=== PATIENT | female | born 1990 | race Caucasian/White ===

== ENCOUNTER 2017-04-01 23:41 | Emergency (ER) | payer BC, OTHER ==
[~2017-04-01] VITALS: Ht 162.6 cm; Wt 68.7 kg
[2017-04-01 23:47] VITALS: TEMP 36.9; Ht 162.6 cm; Wt 68.7 kg
[2017-04-02] MEDS ORDERED: CLR10 PO (00:21)
[2017-04-02] MEDS ORDERED: MULT-506 PO (00:21)
[2017-04-02] MEDS ORDERED: PRENTAB26 PO (00:22)
[2017-04-02 00:44] LABS: BASO % 0.4 %; BASO ABS # 0.04 K/uL (0-0.2); EOS % 0.1 %; EOS ABS # 0.01 K/uL (0-0.5); HEMATOCRIT 40.6 % (37-47); HEMOGLOBIN 14.5 g/dL (12.0-16.0); IG# 0.02 K/uL (0.00-0.02); LYMPH % 20.9 %; LYMPH ABS # 2.38 K/uL (1.2-3.4); MEAN CORPUSCULAR HEMOGLOBIN 31.8 pg (25-34); MEAN CORPUSCULAR HGB CONC 35.7 g/dl (32-36); MEAN PLATELET VOLUME 11.1 fL (7.4-10.4); MONO % 7.4 %; MONO ABS # 0.84 K/uL (0.11-0.59); NEUT ABS # 8.09 K/uL (1.4-6.5); PLATELET COUNT 275 K/uL (130-400); RED CELL DISTRIBUTION WIDTH CV 11.8 % (11.5-14.5); RED CELL DISTRIBUTION WIDTH SD 38.2 fL (36.4-46.3); WHITE BLOOD COUNT 11.38 K/uL (4.8-10.8)
[2017-04-02 00:49] VITALS: O2SAT 95
[2017-04-02 01:13] LABS: ALBUMIN 4.1 gm/dl (3.4-5.0); ALKALINE PHOSPHATASE 53 U/L (45-117); ALT/SGPT 20 U/L (12-78); AST/SGOT 23 U/L (15-37); BLOOD UREA NITROGEN 13 mg/dl (7-18); CALCIUM 9.3 mg/dl (8.5-10.1); CARBON DIOXIDE 23 mmol/L (21-32); CKMB 1.1 ng/ml (0.5-3.6); GLUCOSE 114 mg/dl (70-99); POTASSIUM 3.4 mmol/L (3.5-5.1); SODIUM 140 mmol/L (136-145); TOTAL PROTEIN 8.1 gm/dl (6.4-8.2)
[2017-04-02] MEDS ORDERED: LORAZEPAM 0.5 MG TAB SL STA (02:25)
[2017-04-02] MEDS ORDERED: OPTIRAY 320 IV PRN (02:30)
--- NOTE | 2017-04-02 03:13 | EMERGENCY ROOM VISIT NOTE ---
History Report prepared by Uzielibmichelle: Sonny Bro Under the Supervision of: Dr. Satya Stahl D.O. First contact with patient: 00:19 Chief Complaint: ARM PAIN Stated Complaint: LEFT ARM DISCOMFORT/TINGLING History of Present Illness The patient is a 27 year old female who presents to the Emergency Room with complaints of left arm pain that started 3 days ago. She states she finished a total body core workout and that her left arm is swollen. She states her arm is numb and tingling. She denies chest pain and neck pain. Of note, the patient is nervous to be in the ED and is having difficulty relaxing. Source of History: patient Onset: 3 days ago Position: arm (left) Timing: constant Associated Symptoms: No neck pain, No chest pain Note: Patient reports numbness and tingling in her left arm. Review of Systems See HPI for pertinent positives & negatives. A total of 10 systems reviewed and were otherwise negative. Social History Smoking Status: Never Smoker Current/Historical Medications Scheduled Loratadine (Claritin), 10 MG PO DAILY Multivit/Min/Iron/Fol Ac/Pren ( Vitamin), 1 TAB PO DAILY Multivitamin (Multivitamin), 1 TAB PO DAILY Allergies Coded Allergies: Mushroom (Verified Allergy, Unknown, VOMITING, 04/02/17) Physical Exam Vital Signs Date Time Temp Pulse Resp B/P (MAP) Pulse Ox O2 Delivery O2 Flow Rate FiO2 04/02/17 02:49 109 18 138/82 99 Room Air 04/02/17 01:20 99 18 117/74 98 Room Air 04/02/17 00:49 95 Room Air 04/02/17 00:49 113 20 115/77 95 Room Air 04/02/17 00:10 132 04/02/17 00:08 120 20 136/86 99 Room Air 04/01/17 23:47 36.9 126 20 133/73 100 Room Air Physical Exam CONSTITUTIONAL/VITAL SIGNS: Reviewed / noted above. GENERAL: Non-toxic in appearance. INTEGUMENTARY: Warm, dry, and [place]. HEAD: Normocephalic. EYES: without scleral icterus or trauma. ENT/OROPHARYNX: clear and moist. LYMPHADENOPATHY/NECK: Is supple without lymphadenopathy or meningismus. RESPIRATORY: Lungs clear and equal. CARDIOVASCULAR: Tachycardiac and regular rhythm. GI/ABDOMEN: Soft and nontender. No organomegaly or pulsatile mass. No rebound or guarding. Normal bowel sounds. EXTREMITIES: Warm and well perfused. BACK: No CVA tenderness. NEUROLOGICAL: Intact without focal deficits. PSYCHIATRIC: normal affect. MUSCULOSKELETAL: Normally developed with good muscle tone. Medical Decision & Procedures ER Provider Diagnostic Interpretation: Chest x-ray:per my interpretation is negative for acute disease. No pneumothorax or pneumonia. CT scan of the chest: Per the radiologist as negative for acute disease. Laboratory Results 04/02/17 00:25 Red Blood Count 4.56, Mean Corpuscular Volume 89.0, Mean Corpuscular Hemoglobin 31.8, Mean Corpuscular Hemoglobin Concent 35.7, Mean Platelet Volume 11.1, Neutrophils (%) (Auto) 71.0, Lymphocytes (%) (Auto) 20.9, Monocytes (%) (Auto) 7.4, Eosinophils (%) (Auto) 0.1, Basophils (%) (Auto) 0.4, Neutrophils # (Auto) 8.09, Lymphocytes # (Auto) 2.38, Monocytes # (Auto) 0.84, Eosinophils # (Auto) 0.01, Basophils # (Auto) 0.04 04/02/17 00:25 Test 04/02/17 00:25 04/02/17 01:54 04/02/17 02:10 White Blood Count 11.38 K/uL (4.8-10.8) Red Blood Count 4.56 M/uL (4.2-5.4) Hemoglobin 14.5 g/dL (12.0-16.0) Hematocrit 40.6 % (37-47) Mean Corpuscular Volume 89.0 fL (80-100) Mean Corpuscular Hemoglobin 31.8 pg (25-34) Mean Corpuscular Hemoglobin Concent 35.7 g/dl (32-36) Platelet Count 275 K/uL (130-400) Mean Platelet Volume 11.1 fL (7.4-10.4) Neutrophils (%) (Auto) 71.0 % Lymphocytes (%) (Auto) 20.9 % Monocytes (%) (Auto) 7.4 % Eosinophils (%) (Auto) 0.1 % Basophils (%) (Auto) 0.4 % Neutrophils # (Auto) 8.09 K/uL (1.4-6.5) Lymphocytes # (Auto) 2.38 K/uL (1.2-3.4) Monocytes # (Auto) 0.84 K/uL (0.11-0.59) Eosinophils # (Auto) 0.01 K/uL (0-0.5) Basophils # (Auto) 0.04 K/uL (0-0.2) RDW Standard Deviation 38.2 fL (36.4-46.3) RDW Coefficient of Variation 11.8 % (11.5-14.5) Immature Granulocyte % (Auto) 0.2 % Immature Granulocyte # (Auto) 0.02 K/uL (0.00-0.02) Anion Gap 10.0 mmol/L (3-11) Est Creatinine Clear Calc Drug Dose 79.0 ml/min Estimated GFR () 88.2 Estimated GFR (Non- 76.1 BUN/Creatinine Ratio 12.5 (10-20) Calcium Level 9.3 mg/dl (8.5-10.1) Total Bilirubin 0.3 mg/dl (0.2-1) Direct Bilirubin mg/dl (0-0.2) Aspartate Amino Transf (AST/SGOT) 23 U/L (15-37) Alanine Aminotransferase (ALT/SGPT) 20 U/L (12-78) Alkaline Phosphatase 53 U/L (45-117) Total Creatine Kinase 161 U/L (26-192) Creatine Kinase MB 1.1 ng/ml (0.5-3.6) Creatine Kinase MB Ratio 0.7 (0-3.0) Troponin I < 0.015 ng/ml (0-0.045) Total Protein 8.1 gm/dl (6.4-8.2) Albumin 4.1 gm/dl (3.4-5.0) Thyroid Stimulating Hormone (TSH) 7.340 uIu/ml (0.300-4.500) Chemistry Specimen Hemolysis Bedside D-Dimer > 450 ng/mlFEU (0-450) Urine Color YELLOW Urine Appearance CLEAR (CLEAR) Urine pH 7.0 (4.5-7.5) Urine Specific [place] 1.010 (1.000-1.030) Urine Protein NEG (NEG) Urine Glucose (UA) NEG (NEG) Urine Ketones NEG (NEG) Urine Occult Blood 3+ (NEG) Urine Nitrite NEG (NEG) Urine Bilirubin NEG (NEG) Urine Urobilinogen NEG (NEG) Urine Leukocyte Esterase NEG (NEG) Urine WBC (Auto) 1-5 /hpf (0-5) Urine RBC (Auto) 0-4 /hpf (0-4) Urine Hyaline Casts (Auto) 0 /lpf (0-5) Urine Epithelial Cells (Auto) 10-20 /lpf (0-5) Urine Bacteria (Auto) NEG (NEG) Urine Yeast (Auto) (NONE PRSENT) Laboratory results as stated above per my review. Medications Administered Medications (Trade) Dose Ordered Sig/Teri Route Start Time Stop Time Status Last Admin Dose Admin Lorazepam (Ativan Tab) 0.5 mg NOW STAT SL 04/02/17 02:25 04/02/17 02:26 DC 04/02/17 02:47 0.5 MG ED Course 0019: Previous medical records were reviewed. The patient was evaluated in room B11B. A complete history and physical examination was performed. 0220: I checked in with the patient and discussed her lab findings. 0225: Ativan Tab .5 mg SL. 0345: On reevaluation, the patient is doing well. I discussed the results and findings with the patient. She verbalized agreement of the treatment plan. The patient was discharged home. Medical Decision the differential was considered includes acute myocardial infarction, acute coronary syndrome, myocarditis, pericarditis, pericardial effusions /tamponade, esophageal perforation, thoracic aortic dissection, pulmonary embolism, pneumonia, pneumothorax, pancreatitis, shingles, acute cholecystitis, perforated abdominal viscus. This is a 27-year-old female who presents to the ED with a chief complaint of left arm pain. The patient states that she has had intermittent left arm pain for the past several days. She states it radiates from the left shoulder and left wrist. She states that she can't relax. She feels anxious. Her initial heart rate is 132. She feels as related to anxiety. The patient's physical exam was otherwise unremarkable. Lungs are clear. There were no murmurs or rashes. Motor function and sensory function of the left arm was normal. She is not having any swelling or redness or evidence of infection. There is no lymphadenopathy under the axilla. The patient has normal capillary refill and good strong pulses distally. A CBC was normal. She panel was normal. Chest x- ray did not show acute disease. EKG shows a sinus rhythm. Chest x-ray did not show acute process. D-dimer was elevated. Troponin was negative. TSH was normal. CT scan of the chest did not show any acute abnormality. The patient was given Ativan sublingual. She was told the results felt to be stable for discharge. Medication Reconcilliation Current Medication List: was personally reviewed by me Blood Pressure Screening Patient's blood pressure: Normal blood pressure Blood pressure disposition: Did not require urgent referral Impression Primary Impression: Arm pain, left Scribe Attestation The scribe's documentation has been prepared under my direction and personally reviewed by me in its entirety. I confirm that the note above accurately reflects all work, treatment, procedures, and medical decision making performed by me. Departure Information Dispostion Home / Self-Care Referrals Adalberto Hernández M.D. (PCP) Patient Instructions My [facility] Additional Instructions Follow-up with your doctor for further care and evaluation in 1-2 days. Return to the emergency department for worsening or new symptoms or any concerns. You have been examined and treated today on an emergency basis only. This is not a substitute for, or an effort to provide, complete comprehensive medical care. It is impossible to recognize and treat all injuries or illnesses in a single emergency department visit. It is therefore important that you follow up closely with your doctor. Call as soon as possible for an appointment.
[2017-04-02 03:31] VITALS: BP 136/80; PULSE 98; O2SAT 99
--- NOTE | 2017-04-02 07:04 | DIAGNOSTIC IMAGING REPORT ---
(CHEST FOR PE) ANGIO WITH CT DOSE: 240.69 mGy.cm HISTORY: Chest pain dyspnea TECHNIQUE: Multiaxial CT images of the chest were performed following the intravenous administration of contrast to evaluate the pulmonary arteries. Maximal intensity projection images were also obtained. A dose lowering technique was utilized adhering to the principles of ALARA. COMPARISON STUDY: None. FINDINGS: There is a normal caliber thoracic aorta with no evidence for dissection. There is no evidence for pulmonary embolus. No pleural effusions. No pneumothorax. The liver and spleen are unremarkable. No mediastinal or hilar lymphadenopathy. The central airways are patent. The lungs are clear. IMPRESSION: No evidence for pulmonary embolus. Lungs are clear. The above report was generated using voice recognition software. It may contain grammatical, syntax or spelling errors. Electronically signed by: Ramón Naranjo M.D. 04/02/2017 7:03 AM Dictated Date/Time: 04/02/2017 7:01 AM
--- NOTE | 2017-04-02 07:25 | DIAGNOSTIC IMAGING REPORT ---
SINGLE VIEW CHEST CLINICAL HISTORY: Fever. Sepsis. FINDINGS: An AP, portable, upright chest radiograph is compared to study dated 09/06/2005. The examination is mildly degraded by portable technique and patient rotation. The cardiomediastinal silhouette is unremarkable. The lungs and pleural spaces are clear. No pneumothorax is seen. The bony thorax is grossly intact. There is mild thoracic scoliosis. IMPRESSION: No active disease in the chest. Electronically signed by: James Larsen M.D. 04/02/2017 7:23 AM Dictated Date/Time: 04/02/2017 7:23 AM
== END 2017-04-02 03:32 | disposition home or self-care (01) ==
LOC: C.EDB 23:43
DX: M79.602 Pain in left arm (principal); Z91.018 Allergy to other foods